=== PATIENT | male | born 1935 | race African-American/Black ===

== ENCOUNTER 2016-07-28 04:58 | Emergency (ER) | payer MEDICARE ==
[~2016-07-28] VITALS: Ht 180.3 cm; Wt 100.0 kg
[2016-07-28 07:26] LABS: BASOPHILS % 1.2 % (0.0-2.0); HEMATOCRIT. 38.8 % (42.0-52.0); HEMOGLOBIN. 13.1 g/dL (14.0-18.0); LYMPHOCYTES % 37.2 % (20.0-50.0); MEAN CORPUSCULAR HEMOGLOBIN 31.3 pg (28.0-32.0); MEAN CORPUSCULAR VOLUME 92.5 fL (80.0-94.0); MONOCYTES % 10.5 % (2.0-8.0); NEUTROPHILS % 48.1 % (40.0-76.0); PLATELET 160 x1000/uL (130-400); RED BLOOD CELL COUNT 4.19 mill/uL (4.7-6.1); RED CELL DISTRIBUTION WIDTH 14.3 % (11.6-14.6)
[2016-07-28 07:34] LABS: PROTHROMBIN TIME 10.5 sec
[2016-07-28 07:40] LABS: CARBON DIOXIDE 25 mEq/L (21-32); CHLORIDE 108 mEq/L (98-107)
[2016-07-28 07:43] LABS: TROPONIN I < 0.02 ng/mL (0.00-0.04)
[2016-07-28 08:30] VITALS: BP 136/61
== END 2016-07-28 08:46 | disposition home or self-care (01) ==
LOC: ER 04:58
DX: G47.33 Obstructive sleep apnea (adult) (pediatric) (principal); I10 Essential (primary) hypertension
CPT/HCPCS: 36415; 71010; 80053; 83880; 84484; 85025; 85610; 93005; 99285